=== PATIENT | male | born 1995 | race Caucasian/White ===

== ENCOUNTER 2020-02-11 18:39 | Emergency (ER) | payer OTHER ==
--- NOTE | 2020-02-11 19:24 | ED Physician Documentation ---
History of Present Illness - Stated complaint Stated Complaint: FEVER/SORE THROAT/ABHISHEK/BODY ACHE/CHACHA - Chief complaint Chief Complaint: General - History obtained from History obtained from: Patient, Family - Additonal information Additional information: Pt comes to the Ed c/o ST, body aches, mildly productive cough, nasal congestion, nausea without vomiting, and diarrhea x 2 days. No measured fevers, though pt thinks he may have had one. is getting over a URI, but states her sx were not as extensive as pt's. Pt denies dyspnea. He is otherwise healthy. No recent sick contacts, other than . COVID exposure 1 month ago, but no sx afterward. Pt states sx were worse this morning than now. Nausea is better. Review of Systems Ten Systems: 10 systems reviewed and negative Constitutional: reports: Myalgias Eyes: reports: Reviewed and negative Ears: reports: Reviewed and negative Nose: reports: Congestion Throat: reports: Sore throat Cardiac: reports: Reviewed and negative Respiratory: reports: Cough. denies: Dyspnea GI: reports: Reviewed and negative : reports: Reviewed and negative Skin: reports: Reviewed and negative Musculoskeletal: reports: Reviewed and negative Neurologic: reports: Reviewed and negative Psychiatric: reports: Reviewed and negative Endocrine: reports: Reviewed and negative Immunocompromised: reports: Reviewed and negative PD PAST MEDICAL HISTORY - Allergies Allergies/Adverse Reactions: Allergies Allergy/AdvReac Type Severity Reaction Status Date / Time amoxicillin [From Augmentin] Allergy Hives Verified 02/11/20 19:17 clavulanic acid Allergy Hives Verified 02/11/20 19:17 [From Augmentin] PD ED PE NORMAL - Vitals Vital signs reviewed: Yes - General General: Alert and oriented X 3, No acute distress, Well developed/nourished - HEENT HEENT: Atraumatic, PERRL, EOMI, Moist mucous membranes, Other (mild pharyngeal erythema, no exudates) - Neck Neck: Supple, no meningeal sign - Cardiac Cardiac: RRR, No murmur, Strong equal pulses - Respiratory Respiratory: No respiratory distress, Clear bilaterally - Abdomen Abdomen: Soft, Non tender, Non distended - Derm Derm: Normal color, Warm and dry, No rash - Extremities Extremities: No deformity, No tenderness to palpate, No edema, No calf tenderness / cord - Neuro Neuro: Alert and oriented X 3, chemist helper 2-12 intact, No motor deficit, No sensory deficit, Normal speech - Psych Psych: Normal mood, Normal affect Results - Vitals Vitals: Vital Signs - 24 hr 02/11/20 18:55 Temperature 38.2 C H Heart Rate 83 Respiratory 18 Rate Blood Pressure 149/84 H O2 Saturation 98 Oxygen O2 Source Room air PD MEDICAL DECISION MAKING - ED course Complexity details: reviewed results, re-evaluated patient, considered differential, d/w patient, d/w family ED course: Pt was very well-appearing. We discussed that sx could be due to covid, influenza, or any one of many other viruses. We have discussed quarantining until pt's covid test results are back. Pt states that he does not feel he needs any medication/symptomatic treatment at this time, and has held water down today. He would like to go home after testing and be notified of any positive results. I feel this is reasonable. He has been tested for COVID, flu and mono. I have given him a work note and a Rx for Zofran. We have discussed the usual indications for return. Pt understands that he will be notified if his COVID is positive, but not if it is negative, and that he can go to Medical Records to get his results. Departure - Departure Disposition: Home, Self Care Clinical Impression: Viral illness Condition: Stable Instructions: ED Viral Syndrome Comments: You have been tested for COVID, flu and mono tonight. Your COVID test will be back within 48 hours, and until you are found to be negative, you should quarantine at home. If any of your tests come back positive, you will be notified. You may use Zofran as needed for nausea, and ibuprofen and acetaminophen (Tylenol) for aches and fevers. Please get plenty of rest and water. Forms: Activity restrictions
[2020-02-11] MEDS ORDERED: IBUPROFEN 600 MG TABLET PO STA (19:38)
[2020-02-11] MEDS ORDERED: ACETAMINOPHEN 325 MG TABLET PO STA (19:38)
[2020-02-11] MEDS ORDERED: IBUPROFEN 800 MG TABLET PO STA (19:49)
[2020-02-11 20:08] VITALS: BP 133/71
== END 2020-02-11 20:05 | disposition home or self-care (01) ==
LOC: ED 18:39
DX: B34.9 Viral infection, unspecified (principal); Z20.828 Contact with and (suspected) exposure to other viral communicable diseases
CPT/HCPCS: 36415; 86308; 87275; 87276; 87635; 99283; A9270